=== PATIENT | male | born 1980 | race Caucasian/White ===

== ENCOUNTER 2024-07-31 10:12 | Outpatient (CLI) | payer OTHER, SELFPAY ==
--- NOTE | 2024-07-31 10:59 | W.ANESCHARGE ---
Anesthesia Charges Start Date/Time Anesthesia Start Date: 07/31/24 Stop Date/Time Anesthesia Stop Date: 07/31/24
--- NOTE | 2024-07-31 11:33 | W.ANESCHARGE ---
Anesthesia Charges Start Date/Time Anesthesia Start Date: 07/31/24 Anesthesia Start Time: 11:10 Stop Date/Time Anesthesia Stop Date: 07/31/24 Anesthesia Stop Time: 11:30
--- NOTE | 2024-07-31 13:11 | W.ANESCHARGE ---
Anesthesia Charges Start Date/Time Anesthesia Start Date: 07/31/24 Anesthesia Start Time: 11:10 Stop Date/Time Anesthesia Stop Date: 07/31/24 Anesthesia Stop Time: 11:30
== END 2024-07-31 10:13 | disposition home or self-care (01) ==
LOC: OP CLINIC 10:15
PROVIDERS: PCP Student in an Organized Health Care Education/Training Program; Visit Provider Internal Medicine Gastroenterology
DX: Z12.11 Encounter for screening for malignant neoplasm of colon (principal)
CPT/HCPCS: 00812; 45378; J2704